=== PATIENT | male | born 1995 | race Asian ===

== ENCOUNTER 2020-11-12 15:29 | Emergency (ER) | payer OTHER ==
[~2020-11-12] VITALS: Ht 165.1 cm; Wt 61.2 kg
[2020-11-12 15:45] VITALS: BP_SYST 127
[2020-11-12] MEDS ORDERED: NACL 0.9% 1,000 ML IV ONE (16:30)
[2020-11-12] MEDS ORDERED: ONDANSETRON HCL 4 MG/2 ML VIAL IVP ONE (16:30)
[2020-11-12] MEDS ORDERED: MORPHINE 4 MG/ML INJ. SYRINGE IVP ONE (16:30)
[2020-11-12] MEDS ORDERED: IBUP-1969 PO (17:14)
[2020-11-12 17:50] VITALS: BP_SYST 127
== END 2020-11-12 17:54 | disposition home or self-care (01) ==
LOC: SED 15:29
DX: S43.101A Unspecified dislocation of right acromioclavicular joint, initial encounter (principal); V29.9XXA Motorcycle rider (driver) (passenger) injured in unspecified traffic accident, initial encounter; Y93.89 Activity, other specified; Y92.413 State road as the place of occurrence of the external cause; Y99.8 Other external cause status
CPT/HCPCS: 23650; 73030; 96374; 96375; 99284; J2270; J2405; J7030